=== PATIENT | female | born 1935 ===

== ENCOUNTER 2021-07-26 06:14 | Day surgery (SDC) | payer OTHER ==
[~2021-07-26 06:14] MED LIST: ATIVAN1 M1 PO; ATORVASTATIN CA40 MG; ENALAPRIL MALEAT5 MG; GLUMETZA1000 MG; LEVO-T88 MCG PO; LEVOTHYROXINE50 MCG
== END 2021-07-26 17:00 | disposition home or self-care (01) ==
LOC: CIR.AMB 06:14
PROVIDERS: ATTEND Colon & Rectal Surgery
DX: T85.518A Breakdown (mechanical) of other gastrointestinal prosthetic devices, implants and grafts, initial encounter (principal)
CPT/HCPCS: 64590; L8679